=== PATIENT | male | born 2000 | race Caucasian/White ===

== ENCOUNTER 2024-07-05 02:32 | Emergency (ER) | payer SELFPAY ==
[2024-07-05] MEDS ORDERED: KETOROLAC 30 MG/ML INJ ONE (02:45)
[2024-07-05] MEDS ORDERED: methocarbamoL 750 MG TAB ONE (04:17)
[2024-07-05] MEDS ORDERED: ONDANSETRON 4 MG (ODT) TAB ONE (04:17)
[2024-07-05] MEDS ORDERED: TRAMADOL HCL 50 MG TAB ONE (04:17)
--- NOTE | 2024-07-05 04:17 | ER ---
Nurse's Notes [facility] Name: Romain Garcia Age: 23 yrs Sex: Male : 2000 Arrival Date: 07/05/2024 Time: 02:32 Bed 7 Private MD: Diagnosis: Sprain of unspecified part of left wrist and hand;Acute left Medial wrist sprrain Presentation: 07/05 02:44 Chief complaint: Patient states: pain and swelling to left wrist and hand after sliding lg3 into base at [employer]. Coronavirus screen: Client denies travel out of the [place] in the last 14 days. At this time, the client does not indicate any symptoms associated with coronavirus-19. Ebola Screen: No symptoms or risks identified at this time. Initial Sepsis Screen: Does the patient meet any 2 criteria? No. Patient's initial sepsis screen is negative. Does the patient have a suspected source of infection? No. Patient's initial sepsis screen is negative. Risk Assessment: Do you want to hurt yourself or someone else? Patient reports no desire to harm self or others. Onset of symptoms was July 04, 2024. 02:44 Method Of Arrival: Ambulatory lg3 02:44 Acuity: SOL 4 lg3 Triage Assessment: 02:46 General: Appears in no apparent distress. comfortable, Behavior is calm, cooperative. lg3 Pain: Complains of pain in left wrist and left hand. EENT: No deficits noted. No signs and/or symptoms were reported regarding the EENT system. Neuro: No deficits noted. [place] Agitation-Sedation Scale (RASS): 0 - Alert and Calm Level of Consciousness is awake, alert, obeys commands, Oriented to person, place, time, situation. Cardiovascular: No deficits noted. Denies chest pain, shortness of breath, Capillary refill < 3 seconds Clubbing of nail beds is absent JVD is absent Patient's skin is warm and dry. Respiratory: No deficits noted. Airway is patent Respiratory effort is even, unlabored, Respiratory pattern is regular, symmetrical. GI: No deficits noted. No signs and/or symptoms were reported involving the gastrointestinal system. : No deficits noted. No signs and/or symptoms were reported regarding the genitourinary system. Derm: No deficits noted. No signs and/or symptoms reported regarding the dermatologic system. Skin is intact, is healthy with good turgor, Skin is dry, Skin is normal, Skin temperature is warm. Musculoskeletal: Circulation, motion, and sensation intact. Range of motion: intact in all extremities, Swelling present in left wrist. Historical: - Allergies: 02:46 No Known Allergies; lg3 - Home Meds: 02:46 None [Active]; lg3 - PMHx: 02:46 None; lg3 - PSHx: 02:46 right knee; lg3 - Immunization history:: Adult Immunizations up to date. - Infectious Disease History:: Denies. - Social history:: Smoking status: Patient denies any tobacco usage or history of. Patient uses alcohol, occasionally. - Family history:: not pertinent. Screenin:50 [facility] ED Fall Risk Assessment (Adult) History of falling in the last 3 months, bm8 including since admission No falls in past 3 months (0 pts) Confusion or Disorientation No (0 pts) Intoxicated or Sedated No (0 pts) Impaired Gait No (0 pts) Mobility Assist Device Used No (0 pt) Altered Elimination No (0 pt) Score/Fall Risk Level 0 - 2 = Low Risk Oriented to surroundings, Maintained a safe environment, Educated pt \T\ family on fall prevention, incl call for assistance when getting out of bed, Assessed \T\ reinforced patient's understanding of fall precautions, Hourly rounding (assess needs \T\ fall precautionary measures) done, Used ambulatory aids as needed (educated on \T\ assisted with), Used gait belt as appropriate. Abuse screen: Denies threats or abuse. Nutritional screening: No deficits noted. Tuberculosis screening: No symptoms or risk factors identified. Assessment: 02:50 General: Appears in no apparent distress. uncomfortable, Behavior is calm, cooperative, bm8 appropriate for age. Pain: Complains of pain in left wrist Pain currently is 8 out of 10 on a pain scale. Quality of pain is described as aching, throbbing. Neuro: No deficits noted. Level of Consciousness is awake, alert, obeys commands, Oriented to person, place, time, situation, Appropriate for age. Cardiovascular: Denies chest pain, Capillary refill < 3 seconds in bilateral fingers Patient's skin is warm and dry. Respiratory: Airway is patent Respiratory effort is even, unlabored, Respiratory pattern is regular, symmetrical. GI: No signs and/or symptoms were reported involving the gastrointestinal system. : No signs and/or symptoms were reported regarding the genitourinary system. EENT: No signs and/or symptoms were reported regarding the EENT system. Derm: No signs and/or symptoms reported regarding the dermatologic system. Musculoskeletal: Capillary refill < 3 seconds, in bilateral fingers. Range of motion: limited in left wrist Swelling present in left wrist. 03:38 Reassessment: Patient appears in no apparent distress at this time. No changes from bm8 previously documented assessment. Patient and/or family updated on plan of care and expected duration. Pain level reassessed. Patient is alert, oriented x 3, equal unlabored respirations, skin warm/dry/pink. pt states that pain medication did nothing for his pain, provider informed. 04:24 Reassessment: Patient appears in no apparent distress at this time. Patient and/or bm8 family updated on plan of care and expected duration. Pain level reassessed. Patient is alert, oriented x 3, equal unlabored respirations, skin warm/dry/pink. Patient states symptoms have improved. Vital Signs: 02:44 BP 143 / 88; Pulse 74; Resp 17 S; Temp 97.4(TE); Pulse Ox 99% on R/A; Weight 113.4 kg lg3 (R); Height 6 ft. 1 in. (R); Pain 8/10; 03:38 BP 136 / 86; Pulse 63; Resp 17; Temp 97.4; Pulse Ox 99% ; Pain 8/10; bm8 02:44 Body Mass Index 32.98 (113.40 kg, 185.42 cm) lg3 02:44 Pain Scale: Adult lg3 03:38 Pain Scale: Adult bm8 [place] Coma Score: 02:50 Eye Response: spontaneous(4). Motor Response: obeys commands(6). Verbal Response: bm8 oriented(5). Total: 15. 03:38 Eye Response: spontaneous(4). Motor Response: obeys commands(6). Verbal Response: bm8 oriented(5). Total: 15. 20:56 Eye Response: spontaneous(4). Motor Response: obeys commands(6). Verbal Response: sp4 oriented(5). Total: 15. ED Course: 02:33 Patient arrived in ED. jj6 02:36 Liban Traore MD is Attending Physician. sp4 02:43 Vj Ramsey RN is Primary Nurse. bm8 02:46 Triage completed. lg3 02:46 Arm band placed on right wrist. lg3 02:50 Patient has correct armband on for positive identification. Bed in low position. Call bm8 light in reach. Side rails up X 1. Client placed on continuous cardiac and pulse oximetry monitoring. NIBP monitoring applied. Pulse ox on. NIBP on. Door closed. Noise minimized. Pillow given. Verbal reassurance given. Head of bed elevated. 02:50 No provider procedures requiring assistance completed. Patient did not have IV access bm8 during this emergency room visit. Patient maintains SpO2 saturation greater than 95% on room air. ice pack to left wrist. 03:15 Hand Left 3 View XRAY In Process Unspecified. EDMS 03:15 Forearm Left XRAY In Process Unspecified. EDMS 04:08 Velcro wrist splint applied to left wrist. bm8 04:16 Ambrose Olson MD is Referral Physician. sp4 04:24 Provided Education on: post er care. bm8 Administered Medications: 02:49 Drug: Ketorolac IM 60 mg IM once Route: IM; Site: right deltoid; bm8 03:42 Follow up: Response: No adverse reaction bm8 04:23 Drug: traMADol PO 100 mg PO once Route: PO; bm8 04:23 Follow up: Response: No adverse reaction bm8 04:23 Drug: Ondansetron PO 4 mg PO once Route: PO; bm8 04:23 Follow up: Response: No adverse reaction bm8 04:23 Drug: Methocarbamol PO 1500 mg PO once Route: PO; bm8 04:23 Follow up: Response: No adverse reaction bm8 Medication: 02:50 VIS not applicable for this client. bm8 Outcome: 04:16 Discharge ordered by . sp4 04:24 Discharged to home ambulatory, bm8 04:24 Condition: stable 04:24 Discharge instructions given to patient, Instructed on discharge instructions, follow up and referral plans. no drinking with medication, no driving heavy equipment, medication usage, safety practices, Demonstrated understanding of instructions, follow-up care, medications, Prescriptions given X 3, 04:25 Patient left the ED. bm8 Signatures: Dispatcher [employer] Ev Hernández RN RN lg3 [place] Personj6 Liban Traore MD MD sp4 Vj Ramsey RN RN bm8
--- NOTE | 2024-07-05 04:17 | EDPHYS ---
Physician Documentation [facility] Name: Romain Garcia Age: 23 yrs Sex: Male : 2000 Arrival Date: 07/05/2024 Time: 02:32 Bed 7 Private MD: ED Physician Liban Traore HPI: 07/05 02:36 This 23 yrs old Male presents to ER via Unassigned with complaints of Wrist sp4 Injury. 20:56 23-year-old male presents with complaint of wrist pain. Patient sprained wrist while sp4 playing baseball. Pain is in the left wrist left ulnar side of the wrist. Historical: - Allergies: 02:46 No Known Allergies; lg3 - Home Meds: 02:46 None [Active]; lg3 - PMHx: 02:46 None; lg3 - PSHx: 02:46 right knee; lg3 - Immunization history:: Adult Immunizations up to date. - Infectious Disease History:: Denies. - Social history:: Smoking status: Patient denies any tobacco usage or history of. Patient uses alcohol, occasionally. - Family history:: not pertinent. ROS: 20:56 Constitutional: Negative for fever, chills, and weight loss, positive left wrist pain sp4 20:56 All other systems are negative, Exam: 20:56 Constitutional: This is a well developed, well nourished patient who is awake, alert, sp4 and in no acute distress. Head/Face: Normocephalic, atraumatic. Eyes: Pupils equal round and reactive to light, extra-ocular motions intact. Lids and lashes normal. Conjunctiva and sclera are not injected. Cornea within normal limits. Periorbital areas with no swelling, redness, or edema. ENT: Nares patent. No nasal discharge, no septal abnormalities noted. Tympanic membranes are normal and external auditory canals are clear. Oropharynx with no redness, swelling, or masses, exudates, or evidence of obstruction, uvula midline. Mucous membranes moist. Neck: Trachea midline, no thyromegaly or masses palpated, and no cervical lymphadenopathy. Supple, full range of motion without nuchal rigidity, or vertebral point tenderness. Chest/axilla: Normal chest wall appearance and motion. Nontender with no deformity. No lesions are appreciated. Cardiovascular: Regular rate and rhythm with a normal S1 and S2. No gallops, murmurs, or rubs. Normal PMI, no JVD. No pulse deficits. Respiratory: Lungs have equal breath sounds bilaterally, clear to auscultation and percussion. No rales, rhonchi or wheezes noted. No increased work of breathing, no retractions or nasal flaring. Abdomen/GI: Soft, with normal bowel sounds. No distension or tympany. No guarding or rebound. No evidence of tenderness throughout. Back: No spinal tenderness. No costovertebral tenderness. Skin: Warm, dry with normal turgor. Normal color with no rashes, no lesions, and no evidence of cellulitis. MS/ Extremity: Pulses equal, no cyanosis. Neurovascular intact. Full, normal range of motion. Positive left wrist mild swelling pain tenderness decreased range of motion. Preserved pulses and intact neurovascular status Neuro: Awake and alert, GCS 15, oriented to person, place, time, and situation. Cranial nerves II-XII grossly intact. Motor strength 5/5 in all extremities. Sensory grossly intact. Psych: Awake, alert, with orientation to person, place and time. Behavior, mood, and affect are within normal limits Vital Signs: 02:44 BP 143 / 88; Pulse 74; Resp 17 S; Temp 97.4(TE); Pulse Ox 99% on R/A; Weight 113.4 kg lg3 (R); Height 6 ft. 1 in. (R); Pain 8/10; 03:38 BP 136 / 86; Pulse 63; Resp 17; Temp 97.4; Pulse Ox 99% ; Pain 8/10; bm8 02:44 Body Mass Index 32.98 (113.40 kg, 185.42 cm) lg3 02:44 Pain Scale: Adult lg3 03:38 Pain Scale: Adult bm8 [place] Coma Score: 02:50 Eye Response: spontaneous(4). Motor Response: obeys commands(6). Verbal Response: bm8 oriented(5). Total: 15. 03:38 Eye Response: spontaneous(4). Motor Response: obeys commands(6). Verbal Response: bm8 oriented(5). Total: 15. 20:56 Eye Response: spontaneous(4). Motor Response: obeys commands(6). Verbal Response: sp4 oriented(5). Total: 15. Procedures: 21:04 Splinting: Splint applied to left wrist, left hand and palmar aspect of left forearm sp4 using wrist splint, Velcro splint . applied by nurse. Examined by me, post splint application: neurovascular intact, 2+ distal pulses palpable, brisk capillary refill noted, Patient tolerated well, Stable for discharge, advised splint for 2 weeks . MDM: 02:41 Patient medically screened. sp4 04:15 ED course: EXAM DESCRIPTION: XR FOREARM 2 VIEWS LEFT 07/05/2024 3:36 AM CDT CLINICAL sp4 HISTORY: 23 years, Male, Left wrist injury. COMPARISON: None. FINDINGS: 2 X-ray views of the left forearm (frontal and lateral projections) were performed. Bones: No areas of acute bony injuries were demonstrated. Soft tissues: No significant soft tissue swelling. Joints: No gross articular abnormality is identified. Others: There are no gross intraosseous lesions. No periosteal reaction were seen. IMPRESSION: Unremarkable examination of the left forearm. ED course: CLINICAL HISTORY: Left hand pain. COMPARISON: None. TECHNIQUE: XR HAND 3 OR MORE VIEWS LEFT 07/05/2024 2:40 AM CDT FINDINGS: There is no fracture. Joint spaces are preserved. There is moderate soft tissue swelling overlying the dorsum of the wrist. IMPRESSION: No acute osseous findings. . 21:01 Data reviewed: vital signs, nurses notes. sp4 21:02 Differential diagnosis: dislocation, open fracture, abrasion, tendonitis. sp4 07/05 02:40 Order name: Hand Left 3 View XRAY sp4 07/05 02:40 Order name: Forearm Left XRAY sp4 Administered Medications: 02:49 Drug: Ketorolac IM 60 mg IM once Route: IM; Site: right deltoid; bm8 03:42 Follow up: Response: No adverse reaction bm8 04:23 Drug: traMADol PO 100 mg PO once Route: PO; bm8 04:23 Follow up: Response: No adverse reaction bm8 04:23 Drug: Ondansetron PO 4 mg PO once Route: PO; bm8 04:23 Follow up: Response: No adverse reaction bm8 04:23 Drug: Methocarbamol PO 1500 mg PO once Route: PO; bm8 04:23 Follow up: Response: No adverse reaction bm8 Disposition: 21:07 Chart complete. sp4 Disposition Summary: 07/05/24 04:16 Discharge Ordered Notes: We recommend wrist immobilization via wrist splint for 2 weeks Location: Home sp4 Problem: new sp4 Symptoms: have improved sp4 Condition: Stable sp4 Diagnosis - Sprain of unspecified part of left wrist and hand sp4 - Acute left Medial wrist sprrain sp4 Followup: sp4 - With: Ambrose Olson MD - When: 7 - 10 days - Reason: Recheck today's complaints Discharge Instructions: - Discharge Summary Sheet sp4 - Wrist Splint or Brace, Adult, [id number] sp4 Forms: - Patient Portal Instructions sp4 Prescriptions: - Ibuprofen 800 mg Oral Tablet - take 1 tablet ORAL route every 8 hours As needed take with food; 30 tablet; sp4 Refills: 0, Product Selection Permitted - Tramadol 50 mg Oral tablet - take 1 tablet ORAL route every 8 hours as needed; 20 tablet; Refills: 0, sp4 Product Selection Permitted - methocarbamol 750 mg Oral tablet - take 2 tablets ORAL route every 8 hours for 10 days PRN pain; 60 tablet; sp4 Refills: 0, Product Selection Permitted Signatures: Dispatcher [employer] Ev Hernández RN RN lg3 Liban Traore MD MD sp4 Vj Ramsey RN RN bm8
--- NOTE | 2024-07-05 04:32 | RAD REPORT ---
EXAM DESCRIPTION: XR FOREARM 2 VIEWS LEFT 07/05/2024 3:36 AM CDT CLINICAL HISTORY: 23 years, Male, Left wrist injury. COMPARISON: None. FINDINGS: 2 X-ray views of the left forearm (frontal and lateral projections) were performed. Bones: No areas of acute bony injuries were demonstrated. Soft tissues: No significant soft tissue swelling. Joints: No gross articular abnormality is identified. Others: There are no gross intraosseous lesions. No periosteal reaction were seen. IMPRESSION: Unremarkable examination of the left forearm. Electronically signed by: Pete Pierce MD 07/05/2024 03:48 AM CDT Due to temporary technical issues with the PACS/[employer] reporting system, reports are being yvon d by the in-house radiologist without review as a courtesy to ensure prompt reporting the interpreting radiologist is fully responsible for the content of the report. Transcribed Date/Time: 07/05/2024 4:32 AM
--- NOTE | 2024-07-05 04:33 | RAD REPORT ---
CLINICAL HISTORY: Left hand pain. COMPARISON: None. TECHNIQUE: XR HAND 3 OR MORE VIEWS LEFT 07/05/2024 2:40 AM CDT FINDINGS: There is no fracture. Joint spaces are preserved. There is moderate soft tissue swelling overlying the dorsum of the wrist. IMPRESSION: No acute osseous findings. Electronically signed by: Lonnie Miranda MD 07/05/2024 03:40 AM CDT RP Due to temporary technical issues with the PACS/[employer] reporting system, reports are being yvon d by the in-house radiologist without review as a courtesy to ensure prompt reporting the interpreting radiologist is fully responsible for the content of the report. Transcribed Date/Time: 07/05/2024 4:32 AM
[2024-07-05 04:56] VITALS: TEMP 97.4; O2SAT 99
[2024-07-05 04:59] VITALS: BP 136/86
== END 2024-07-05 04:25 | disposition home or self-care (01) ==
LOC: ER 02:32
DX: S63.8X2A Sprain of other part of left wrist and hand, initial encounter (principal); S63.592A Other specified sprain of left wrist, initial encounter
CPT/HCPCS: 96372; 99284; Q0162

== ENCOUNTER 2024-09-10 17:43 | Emergency (ER) | payer SELFPAY ==
[2024-09-10] MEDS ORDERED: LIDOCAINE 1% MPF 5 ML VIAL ONE (19:34)
[2024-09-10] MEDS ORDERED: TDAP (DIPHTH,PERTUSS(ACELL),TET VAC) 0.5 ML VIAL IMVAC ONE (19:34)
--- NOTE | 2024-09-10 20:12 | EDPHYS ---
Physician Documentation [facility] Name: Romain Garcia Age: 24 yrs Sex: Male : 2000 Arrival Date: 09/10/2024 Time: 17:43 Bed 23 Private MD: ED Physician Félix Breaux HPI: 09/10 19:06 This 24 yrs old Male presents to ER via Ambulatory with complaints of Finger Injury. sb4 19:06 The patient has a laceration related to: cooking, from a knife, occurred at home, and sb4 there are no complicating factors. The injury was accidental. The laceration(s) is(are) located on the dorsal aspect of proximal phalanx of right index finger. Onset: The symptoms/episode began/occurred this morning. Associated signs and symptoms: The patient has no apparent associated signs or symptoms. The patient has not experienced similar symptoms in the past. The patient has not recently seen a physician. Historical: - Allergies: 18:28 No Known Allergies; cm10 - Home Meds: 18:28 None [Active]; cm10 - PMHx: 18:28 None; cm10 - PSHx: 18:28 right knee; cm10 - Immunization history:: Adult Immunizations up to date. - Infectious Disease History:: Denies. - Social history:: Smoking status: Patient reports the use of cigarette tobacco products, denies chronic smoking, but will smoke occasionally, Reported history of juuling and/or vaping. ROS: 19:06 Constitutional: Negative for fever, chills, and weight loss, sb4 19:06 Skin: Positive for laceration(s), Exam: 20:10 Constitutional: This is a well developed, well nourished patient who is awake, alert, sb4 and in no acute distress. Head/Face: Normocephalic, atraumatic. Eyes: Extra-ocular motions intact. Periorbital areas with no swelling, redness, or edema. ENT: Mucous membranes moist. 20:10 Skin: injury, laceration(s), the wound is approximately 5 cm(s), with a depth of .3 cm(s), of the dorsal aspect of proximal phalanx of right index finger, that can be described as clean, no foreign body, irregular, with mild bleeding, Vital Signs: 18:27 BP 128 / 101; Pulse 95; Resp 16; Temp 98(O); Pulse Ox 95% on R/A; Weight 117.93 kg; cm10 Height 6 ft. 1 in. ; Pain 1/10; 18:27 Body Mass Index 34.30 (117.93 kg, 185.42 cm) cm10 18:27 Pain Scale: Adult cm10 Laceration: 20:11 Wound Repair of 5cm ( 2.0in ) subcutaneous laceration to dorsal aspect of proximal sb4 phalanx of right index finger. Distal neuro/vascular/tendon intact. Anesthesia: Local anesthetic administered with 5 mls of 1% lidocaine. Wound prep: Simple cleansing with hibiclenz by me, Wound irrigation with saline by me, Wound explored, Copious irrigation. Skin closed with 6 5-0 Prolene using simple sutures and sterile technique. Dressed with bandaid. Patient tolerated well. MDM: 18:30 Medical Screening Exam initiated sb4 20:11 Data reviewed: vital signs, nurses notes, and as a result, I will discharge patient. sb4 Counseling: I had a detailed discussion with the patient and/or guardian regarding the historical points, exam findings, and any diagnostic results supporting the discharge/admit diagnosis, the need for outpatient follow up, for suture removal in 10 days, to return to the emergency department if symptoms worsen or persist or if there are any questions or concerns that arise at home. 09/10 18:29 Order name: Suture Tray at Bedside; Complete Time: 19:38 sb4 Administered Medications: 19:38 Drug: Boostrix Tdap IM 0.5 ml IM once; as a single dose Route: IM; Site: right deltoid; jb4 20:28 Follow up: Response: No adverse reaction jb4 20:13 Drug: Lidocaine Infiltration (1 %) 5 ml 5 ml Infiltration once; to bedside {Note: jb4 administered by ER provider.} Volume: 5 ml; Route: Infiltration; Disposition Summary: 09/10/24 20:12 Discharge Ordered Notes: Location: Home sb4 Problem: new sb4 Symptoms: have improved sb4 Condition: Stable sb4 Diagnosis - Laceration without foreign body of right index finger without damage to nail sb4 Followup: sb4 - With: Private Physician - When: 10 - 14 days - Reason: Staple/Suture removal Discharge Instructions: - Discharge Summary Sheet sb4 - Laceration Care, Adult, [id number] sb4 Forms: - Patient Portal Instructions sb4 - Leadership Thank You Letter sb4 Signatures: Manpreet Salmeron, RN RN [email or web address] Elyssa Guzman PA-C PA-C sb4 Martinez, Clarissa RN RN cm10
--- NOTE | 2024-09-10 20:12 | ER ---
Nurse's Notes [facility] Name: Romain Garcia Age: 24 yrs Sex: Male : 2000 Arrival Date: 09/10/2024 Time: 17:43 Bed 23 Private MD: Diagnosis: Laceration without foreign body of right index finger without damage to nail Presentation: 09/10 18:27 Chief complaint: Patient states: LACERATION TO RIGHT INDEX FINGER ONSET AT 0700 TODAY. cm10 Coronavirus screen: Client denies travel out of the [place] in the last 14 days. Ebola Screen: Patient denies travel to an Ebola-affected area in the 21 days before illness onset. No symptoms or risks identified at this time. Initial Sepsis Screen: Does the patient meet any 2 criteria? No. Patient's initial sepsis screen is negative. Does the patient have a suspected source of infection? No. Patient's initial sepsis screen is negative. Risk Assessment: Do you want to hurt yourself or someone else? Patient reports no desire to harm self or others. Onset of symptoms was September 10, 2024. 18:27 Method Of Arrival: Ambulatory cm10 18:27 Acuity: SOL 4 cm10 Triage Assessment: 18:28 General: Appears in no apparent distress. comfortable, Behavior is calm, cooperative. cm10 Neuro: No deficits noted. Level of Consciousness is awake, alert, obeys commands, Oriented to person, place, time, situation, Appropriate for age. Respiratory: No deficits noted. Airway is patent Respiratory effort is even, unlabored, Respiratory pattern is regular, symmetrical. Injury Description: Laceration sustained to dorsal aspect of proximal phalanx of right index finger is clean, 0.5 to 2.5 cm long, not bleeding, was sustained 6-12 hours ago. Historical: - Allergies: 18:28 No Known Allergies; cm10 - Home Meds: 18:28 None [Active]; cm10 - PMHx: 18:28 None; cm10 - PSHx: 18:28 right knee; cm10 - Immunization history:: Adult Immunizations up to date. - Infectious Disease History:: Denies. - Social history:: Smoking status: Patient reports the use of cigarette tobacco products, denies chronic smoking, but will smoke occasionally, Reported history of juuling and/or vaping. Screenin:25 [facility] ED Fall Risk Assessment (Adult) History of falling in the last 3 months, jb4 including since admission No falls in past 3 months (0 pts) Confusion or Disorientation No (0 pts) Intoxicated or Sedated No (0 pts) Impaired Gait No (0 pts) Mobility Assist Device Used No (0 pt) Altered Elimination No (0 pt) Score/Fall Risk Level 0 - 2 = Low Risk Oriented to surroundings, Maintained a safe environment. Abuse screen: Denies threats or abuse. Nutritional screening: No deficits noted. Tuberculosis screening: No symptoms or risk factors identified. Assessment: 20:25 General: Appears in no apparent distress. comfortable, Behavior is calm, cooperative, jb4 appropriate for age. Pain: Complains of pain in palmar aspect of proximal phalanx of right middle finger Pain does not radiate. Pain currently is 4 out of 10 on a pain scale. Neuro: Level of Consciousness is awake, alert, obeys commands, Oriented to person, place, time, situation. Cardiovascular: Patient's skin is warm and dry. Respiratory: Airway is patent Respiratory effort is even, unlabored, Respiratory pattern is regular, symmetrical. Derm: Skin is pink, warm \T\ dry. Musculoskeletal: Circulation, motion, and sensation intact. Range of motion: intact in all extremities. Injury Description: Laceration sustained to palmar aspect of proximal phalanx of right middle finger is clean, 0.5 to 2.5 cm long, a small amount of bleeding noted at this time. Vital Signs: 18:27 BP 128 / 101; Pulse 95; Resp 16; Temp 98(O); Pulse Ox 95% on R/A; Weight 117.93 kg; cm10 Height 6 ft. 1 in. ; Pain 1/10; 18:27 Body Mass Index 34.30 (117.93 kg, 185.42 cm) cm10 18:27 Pain Scale: Adult cm10 ED Course: 17:45 Patient arrived in ED. im 17:52 Elyssa Guzman PA-C is PHCP. sb4 17:52 Félix Breaux MD is Attending Physician. sb4 18:28 Triage completed. cm10 18:28 Arm band placed on right wrist. Patient placed in waiting room. cm10 20:25 Patient has correct armband on for positive identification. Bed in low position. Call jb4 light in reach. Side rails up X 1. Provided Education on: discharge instructions.. 20:25 No provider procedures requiring assistance completed. Patient did not have IV access jb4 during this emergency room visit. Administered Medications: 19:38 Drug: Boostrix Tdap IM 0.5 ml IM once; as a single dose Route: IM; Site: right deltoid; jb4 20:28 Follow up: Response: No adverse reaction jb4 20:13 Drug: Lidocaine Infiltration (1 %) 5 ml 5 ml Infiltration once; to bedside {Note: jb4 administered by ER provider.} Volume: 5 ml; Route: Infiltration; Medication: 20:25 VIS not applicable for this client. jb4 Outcome: 20:12 Discharge ordered by . sb4 20:28 Patient left the ED. jb4 Signatures: Manpreet Salmeron RN RN jb4 Elyssa Guzman PA-C PA-C sb4 Cat Hyatt Clarissa RN RN cm10
[2024-09-10 21:01] VITALS: BP 128/101; TEMP 98; O2SAT 95
== END 2024-09-10 20:28 | disposition home or self-care (01) ==
LOC: ER 17:43
DX: S61.210A Laceration without foreign body of right index finger without damage to nail, initial encounter (principal)
CPT/HCPCS: 12042; 96372; 99284; J2003

== ENCOUNTER 2024-09-30 13:23 | Emergency (ER) | payer SELFPAY ==
--- NOTE | 2024-09-30 13:46 | ER ---
Nurse's Notes [facility] Name: Romain Garcia Age: 24 yrs Sex: Male : 2000 Arrival Date: 09/30/2024 Time: 13:23 Bed IW1 Private MD: Diagnosis: Coxsackievirus as the cause of diseases classified elsewhere Presentation: 09/30 13:38 Chief complaint: Patient states: Rash to hands, feet and face onset yesterday,. Pt cm10 states that the rash feels tingly and burning sensation. Coronavirus screen: Client denies travel out of the [place] in the last 14 days. Ebola Screen: Patient denies travel to an Ebola-affected area in the 21 days before illness onset. Initial Sepsis Screen: Does the patient meet any 2 criteria? No. Patient's initial sepsis screen is negative. Does the patient have a suspected source of infection? No. Patient's initial sepsis screen is negative. Risk Assessment: Do you want to hurt yourself or someone else? Patient reports no desire to harm self or others. Onset of symptoms was September 29, 2024. 13:38 Method Of Arrival: Ambulatory cm10 13:38 Acuity: SOL 4 cm10 Triage Assessment: 13:40 General: Appears in no apparent distress. uncomfortable, Behavior is calm, cooperative, cm10 appropriate for age. Pain: Denies pain. Neuro: No deficits noted. Level of Consciousness is awake, alert, obeys commands, Oriented to person, place, time, situation, Appropriate for age. Respiratory: No deficits noted. Airway is patent Respiratory effort is even, unlabored, Respiratory pattern is regular, symmetrical. Derm: Rash noted that is red, raised, on face, palm of right hand, palm of left hand, arch of right foot and arch of left foot. Historical: - Allergies: 13:39 No Known Allergies; cm10 - Home Meds: 13:39 None [Active]; cm10 - PMHx: 13:39 None; cm10 - PSHx: 13:39 right knee; cm10 - Immunization history:: Adult Immunizations up to date. - Infectious Disease History:: Denies. - Social history:: Smoking status: Patient denies any tobacco usage or history of. Screenin:42 [facility] ED Fall Risk Assessment (Adult) History of falling in the last 3 months, cm10 including since admission No falls in past 3 months (0 pts) Confusion or Disorientation No (0 pts) Intoxicated or Sedated No (0 pts) Impaired Gait No (0 pts) Mobility Assist Device Used No (0 pt) Altered Elimination No (0 pt) Score/Fall Risk Level 0 - 2 = Low Risk Oriented to surroundings, Maintained a safe environment, Hourly rounding (assess needs \T\ fall precautionary measures) done. Abuse screen: Denies threats or abuse. Denies injuries from another. Nutritional screening: No deficits noted. Tuberculosis screening: No symptoms or risk factors identified. Vital Signs: 13:38 BP 140 / 90; Pulse 71; Resp 15; Temp 98.4(O); Pulse Ox 100% on R/A; Weight 104.33 kg; cm10 Height 6 ft. 1 in. ; Pain 0/10; 13:38 Body Mass Index 30.34 (104.33 kg, 185.42 cm) cm10 13:38 Pain Scale: Adult cm10 ED Course: 13:24 Patient arrived in ED. ra3 13:35 Tutu Elam FNP-C [facility]. dr5 13:35 Félix Breaux MD is Attending Physician. dr5 13:39 Triage completed. cm10 13:39 Arm band placed on right wrist. Patient placed in waiting room. cm10 13:42 Patient has correct armband on for positive identification. Provided Education on: ER cm10 process and procedures.. Cardiac monitoring not applicable on this patient. 13:42 No provider procedures requiring assistance completed. Patient did not have IV access cm10 during this emergency room visit. Administered Medications: No medications were administered Medication: 13:42 VIS not applicable for this client. cm10 Outcome: 13:44 Discharged to home ambulatory, cm10 13:44 Condition: good 13:44 Discharge instructions given to patient, Instructed on discharge instructions, follow up and referral plans. medication usage, Demonstrated understanding of instructions, follow-up care, medications, Prescriptions given X 1, 13:46 Discharge ordered by MD. dr5 13:50 Patient left the ED. cm10 Signatures: Fide Jacobo RN RN cm10 Radha Schwab ra3 Tutu Elam FNP-C BASTING CLEANER-Cdr5
--- NOTE | 2024-09-30 13:46 | EDPHYS ---
Physician Documentation [facility] Name: Romain Garcia Age: 24 yrs Sex: Male : 2000 Arrival Date: 09/30/2024 Time: 13:23 Bed IW1 Private MD: ED Physician Félix Breaux HPI: 09/30 13:48 This 24 yrs old Male presents to ER via Ambulatory with complaints of Rash - dr5 hands/feet spreading. 13:48 The rash is located on the mouth, right hand, left hand, right foot and left foot. dr5 13:49 Patient is a 24-year-old male with no past medical history coming in with rash to dr5 bilateral hands, feet, and 1 on mouth. Patient reports he has multiple joint at home. Patient denies any fever.. Historical: - Allergies: 13:39 No Known Allergies; cm10 - Home Meds: 13:39 None [Active]; cm10 - PMHx: 13:39 None; cm10 - PSHx: 13:39 right knee; cm10 - Immunization history:: Adult Immunizations up to date. - Infectious Disease History:: Denies. - Social history:: Smoking status: Patient denies any tobacco usage or history of. ROS: 13:49 Constitutional: as per hpi dr5 Exam: 13:49 Constitutional: This is a well developed, well nourished patient who is awake, alert, dr5 and in no acute distress. Head/Face: Normocephalic, atraumatic. Eyes: Pupils equal round and reactive to light, extra-ocular motions intact. Lids and lashes normal. Conjunctiva and sclera are non-icteric and not injected. Cornea within normal limits. Periorbital areas with no swelling, redness, or edema. Neck: Trachea midline, no thyromegaly or masses palpated, and no cervical lymphadenopathy. Supple, full range of motion without nuchal rigidity, or vertebral point tenderness. No Meningismus. Chest/axilla: Normal chest wall appearance and motion. Nontender with no deformity. No lesions are appreciated. Cardiovascular: Regular rate and rhythm with a normal S1 and S2. Normal PMI, no JVD. No pulse deficits. Abdomen/GI: Soft, non-tender, non-distended Neuro: Awake and alert, GCS 15, oriented to person, place, time, and situation. Cranial nerves II-XII grossly intact. Motor strength 5/5 in all extremities. Sensory grossly intact. Cerebellar exam normal. Normal gait. 13:49 Skin: lesion(s), on the mouth and left foot and right foot and left hand, Exanthem consistent with hand, foot, and mouth to bilateral hands bilateral feet and mouth., Vital Signs: 13:38 BP 140 / 90; Pulse 71; Resp 15; Temp 98.4(O); Pulse Ox 100% on R/A; Weight 104.33 kg; cm10 Height 6 ft. 1 in. ; Pain 0/10; 13:38 Body Mass Index 30.34 (104.33 kg, 185.42 cm) cm10 13:38 Pain Scale: Adult cm10 MDM: 13:46 Medical Screening Exam initiated dr5 13:49 Differential diagnosis: impetigo, allergic reaction, Coxsackievirus. Data reviewed: dr5 vital signs, nurses notes. Care significantly affected by the following Social Determinants of Health: Poor access to healthcare and/or lack of insurance, Poor access to transportation, Problems related to employment. Counseling: I had a detailed discussion with the patient and/or guardian regarding the historical points, exam findings, and any diagnostic results supporting the discharge/admit diagnosis, the presence of at least one elevated blood pressure reading (>120/80) during this emergency department visit, the need for outpatient follow up, for definitive care, a disc pad grinding machine feeder, a family practitioner, to return to the emergency department if symptoms worsen or persist or if there are any questions or concerns that arise at home. ED course: Will trial short course of steroids. Explained diagnosis of [id number]-[id number]-[id number]-mouth and how contagious it is. Recommended alternating Tylenol Motrin as needed for pain or fever. Can take Benadryl or Pepcid for itching. Likely family in the house will also get it. All questions answered. Patient also reports being monogamous. Administered Medications: No medications were administered Disposition Summary: 09/30/24 13:46 Discharge Ordered Notes: Location: Home dr5 Condition: Stable dr5 Diagnosis - Coxsackievirus as the cause of diseases classified elsewhere dr5 Followup: dr5 - With: Emergency Department - When: As needed - Reason: Worsening of condition Followup: dr5 - With: Private Physician - When: 1 - 2 days - Reason: Recheck today's complaints, Continuance of care, Re-evaluation by your physician Discharge Instructions: - Discharge Summary Sheet dr5 - Hand, Foot, and Mouth Disease, Adult dr5 Forms: - Medication Reconciliation Form dr5 - Patient Portal Instructions dr5 - Leadership Thank You Letter dr5 Prescriptions: - Medrol (Cuauhtemoc) 4 mg Oral Tablets, Dose Pack - take 1 tablet ORAL route as directed - follow package instructions; 1 packet; dr5 Refills: 0, Product Selection Permitted Addendum: 10/02/2024 15:29 Co-signature as Attending Physician, Félix Breaux MD I agree with the assessment and c espinoza plan of care. Signatures: Félix Breaux MD MD cha Martinez, Clarissa, RN RN cm10 Tutu Elam, CONCRETE BUSTER OPERATOR-C CONCRETE BUSTER OPERATOR-Cdr5
[2024-09-30 14:00] VITALS: BP 140/90; TEMP 98.4; O2SAT 100
== END 2024-09-30 13:50 | disposition home or self-care (01) ==
LOC: ER 13:23
DX: R21 Rash and other nonspecific skin eruption (principal); B97.11 Coxsackievirus as the cause of diseases classified elsewhere
CPT/HCPCS: 99283